=== PATIENT | male | born 1955 | race Caucasian/White ===

== ENCOUNTER 2022-08-08 15:37 | Inpatient (IN) | payer MEDICARE ==
[~2022-08-08] VITALS: Ht 170.2 cm; Wt 69.0 kg
[2022-08-08] VITALS (38 sets, daily range): BP systolic 85–168; BP diastolic 55–138
[2022-08-08 16:03] LABS: BASO% 0.2 % (0-3); EOS% 1.1 % (0-8); HEMOGLOBIN 11.7 g/dl (14.0-18.0); IMMATURE GRANULOCYTES 0.3 % (0.0-5.0); LYMPH% 11.7 % (15-41); MEAN CELL VOLUME 104.2 fL CALC (80.0-100.0); MEAN CORPUSCULAR HGB CONC 31.6 g/dL CAL (32.0-36.0); MONO% 10.7 % (2-13); NEUT# 7.31 thou/uL (1.82-7.42); RED BLOOD COUNT 3.55 mill/uL (4.70-6.10); RED CELL DISTRI WIDTH 19.9 % (11.5-15.5)
[2022-08-08 17:51] LABS: BILIRUBIN, TOTAL 0.6 mg/dL (0.2-1.3); CREATININE 1.7 mg/dL (0.7-1.3); POTASSIUM 4.5 mmol/l (3.5-5.1); TOTAL PROTEIN 7.7 g/dL (6.3-8.2)
[2022-08-09] VITALS (8 sets, daily range): BP systolic 89–132; BP diastolic 38–81
[2022-08-09] MEDS ORDERED: ASPIRIN81 MG PO (00:30)
[2022-08-09] MEDS ORDERED: ATORVASTATIN CA80 MG PO (00:31)
[2022-08-09] MEDS ORDERED: ISOSORBIDE DINI30 MG PO (00:32)
[2022-08-09] MEDS ORDERED: CLOPIDOGREL75 MG PO (00:32)
[2022-08-09] MEDS ORDERED: AMLODIPINE BES2.5 MG PO (00:33)
[2022-08-09] MEDS ORDERED: LOPRESSOR25 MG PO (00:34)
[2022-08-09 07:31] LABS: HEMATOCRIT 34.3 % (39.0-50.0); HEMOGLOBIN 10.6 g/dl (14.0-18.0); MEAN CELL VOLUME 105.2 fL CALC (80.0-100.0); MEAN CORPUSCULAR HGB 32.5 pG CALC (26.0-32.0); MEAN CORPUSCULAR HGB CONC 30.9 g/dL CAL (32.0-36.0); RED BLOOD COUNT 3.26 mill/uL (4.70-6.10); RED CELL DISTRI WIDTH 20.2 % (11.5-15.5)
[2022-08-09 07:41] LABS: CREATININE 1.6 mg/dL (0.7-1.3)
[2022-08-09 07:50] LABS: POTASSIUM 5.4 mmol/l (3.5-5.1)
[2022-08-09 09:37] LABS: URINE BILIRUBIN - DIPSTICK NEGATIVE (NEGATIVE); URINE BLOOD DIPSTICK NEGATIVE (NEGATIVE); URINE COLOR YELLOW; URINE GLUCOSE - DIPSTICK NEGATIVE (NEGATIVE); URINE KETONE NEGATIVE (NEGATIVE); URINE LEUK ESTERASE NEGATIVE (NEGATIVE); URINE PH 5.5 (4.5-8.0); URINE PROTEIN - DIPSTICK TRACE mg/dL (NEG-TRACE); URINE UROBILINOGEN - DIPSTICK 0.2 E.U./dL (0.2)
[2022-08-09 09:38] LABS: URINE NITRITE - DIPSTICK NEGATIVE (Negative)
[2022-08-09] MEDS ORDERED: METOPROL TAR25 MG PO (11:05)
[2022-08-09] MEDS ORDERED: ISOSORB MONO30 MG PO (11:07)
[2022-08-09] MEDS ORDERED: ALLOPURINOL100 MG PO (11:09)
[2022-08-09] MEDS ORDERED: BASAGLAR TEM100 UNIT (11:10)
[2022-08-09] MEDS ORDERED: DOXYCYCLINE100 MG PO (11:11)
[2022-08-09] MEDS ORDERED: EFFEXOR XR75 MG/CAP PO (11:11)
[2022-08-09] MEDS ORDERED: MAGNESI12 PO (11:12)
[2022-08-09] MEDS ORDERED: TAMSULOSIN HCL0.4 MG PO (11:13)
[2022-08-09] MEDS ORDERED: TRULICITY1.5 MG/0.5 SC (11:22)
[2022-08-09] MEDS ORDERED: VITAMIN D32000 UNI1 PO (11:23)
[2022-08-09] MEDS ORDERED: MULTI VIT PO (11:24)
== END 2022-08-09 17:00 | disposition left against medical advice (07) | DRG 639 ==
LOC: ED 15:37 → ED-I 19:02 → MS2 19:02
PROVIDERS: Nurse Practitioner; Nurse Practitioner Family; ADMIT Internal Medicine; ATTEND Internal Medicine
DX: E11.649 Type 2 diabetes mellitus with hypoglycemia without coma (principal); N17.9 Acute kidney failure, unspecified; I10 Essential (primary) hypertension; I25.10 Atherosclerotic heart disease of native coronary artery without angina pectoris; E78.5 Hyperlipidemia, unspecified; M10.9 Gout, unspecified; R50.9 Fever, unspecified; Z79.4 Long term (current) use of insulin; Z89.512 Acquired absence of left leg below knee; Z95.5 Presence of coronary angioplasty implant and graft
CPT/HCPCS: G0378